=== PATIENT | male | born 1975 | race African-American/Black ===

== ENCOUNTER 2017-02-16 06:08 | Emergency (ER) | payer OTHER, MEDICAID ==
[~2017-02-16] VITALS: Ht 177.8 cm; Wt 134.0 kg
[~2017-02-16 06:08] MED LIST: ASPI-515 PO; FLUO60TA PO; LISI1TAB5 PO; PROP40TA PO; SIMV20TA3 PO
[2017-02-16 06:09] VITALS: BP 153/85
== END 2017-02-16 08:07 | disposition home or self-care (01) ==
LOC: ED 07:54
DX: K62.5 Hemorrhage of anus and rectum (principal); I10 Essential (primary) hypertension
CPT/HCPCS: 99283

== ENCOUNTER 2017-07-24 21:36 | Emergency (ER) | payer OTHER, MEDICAID ==
[~2017-07-24] VITALS: Ht 180.3 cm; Wt 133.2 kg
[2017-07-24 21:40] VITALS: BP 122/78
== END 2017-07-25 00:38 | disposition home or self-care (01) ==
LOC: ED 23:59
DX: B34.9 Viral infection, unspecified (principal); I10 Essential (primary) hypertension; E78.00 Pure hypercholesterolemia, unspecified
CPT/HCPCS: 71020; 93005; 99284

== ENCOUNTER 2018-03-20 11:19 | Emergency (ER) | payer OTHER, MEDICAID ==
[~2018-03-20] VITALS: Ht 180.3 cm; Wt 127.8 kg
[2018-03-20 11:20] VITALS: BP 137/84
== END 2018-03-20 12:53 | disposition home or self-care (01) ==
LOC: ED 12:15
DX: I10 Essential (primary) hypertension (principal); F32.9 Major depressive disorder, single episode, unspecified; E78.00 Pure hypercholesterolemia, unspecified; F41.9 Anxiety disorder, unspecified; Z79.82 Long term (current) use of aspirin
CPT/HCPCS: 99281

== ENCOUNTER 2018-12-24 01:19 | Emergency (ER) | payer MEDICAID, OTHER ==
[~2018-12-24] VITALS: Ht 180.3 cm; Wt 124.7 kg
[2018-12-24 01:21] VITALS: BP 149/93
[2018-12-24 02:11] LABS: BASOPHILS # (AUTO) 0.01 x10^3/uL (0-0.1); BASOPHILS % (AUTO) 0 % (0-1); EOSINOPHILS # (AUTO) 0.15 x10^3/uL (0-0.4); EOSINOPHILS % (AUTO) 2 % (1-7); LYMPHOCYTES # (AUTO) 1.88 x10^3/uL (1-3.4); LYMPHOCYTES % (AUTO) 26 % (22-44); MD NO; MEAN CORPUSCULAR HEMOGLOBIN 31.3 pg (27.5-34.5); MEAN CORPUSCULAR HGB CONC 34.3 g/dL (33.2-36.2); MEAN CORPUSCULAR VOLUME 91.3 fL (81-97); MEAN PLATELET VOLUME 11.5 fL (7.4-10.4); MONOCYTES # (AUTO) 0.46 x10^3/uL (0.2-0.8); MONOCYTES % (AUTO) 6 % (2-9); NEUTROPHILS # (AUTO) 4.74 x10^3/uL (1.8-6.8); NEUTROPHILS % (AUTO) 66 % (42-75); PLATELET COUNT 161 x10^3/uL (130-400); RED BLOOD COUNT 5.34 x10^6/uL (4.38-5.82); RED CELL DISTRIBUTION WIDTH 13.6 % (9.4-14.8)
--- NOTE | 2018-12-24 02:15 | NUR ---
pt in gown in [facility]. pt educated on er process and verbalizes understanding. call light is within reach.
[2018-12-24 02:21] LABS: ANION GAP 5 mmol/L (5-15); CALCIUM 9.2 mg/dL (8.5-10.1); CHLORIDE 106 mmol/L (98-107); CREATININE 1.15 mg/dL (0.7-1.3)
[2018-12-24 02:24] LABS: TROPONIN I < 0.015 ng/mL (0.000-0.045)
--- NOTE | 2018-12-24 02:56 | NUR ---
dr. zelaya at bs with pt.
--- NOTE | 2018-12-24 03:06 | NUR ---
pt d/c with d/c summary. all questions answered. pt denies any other needs pertaining to this visit. pt ambulated to registration desk with steady gait for d/c home.
== END 2018-12-24 03:08 ==
LOC: ED 03:02
DX: R06.00 Dyspnea, unspecified (principal); F32.9 Major depressive disorder, single episode, unspecified; E78.00 Pure hypercholesterolemia, unspecified; I10 Essential (primary) hypertension
CPT/HCPCS: 36415; 71046; 80048; 82040; 84484; 85025; 93005; 99284

== ENCOUNTER 2019-02-18 17:28 | Emergency (ER) | payer MEDICAID ==
[~2019-02-18] VITALS: Ht 180.3 cm; Wt 121.4 kg
--- NOTE | 2019-02-18 18:23 | NUR ---
Sent yellow slip to pharmacy requesting meds.
[2019-02-18] MEDS ORDERED: COLCHICINE 0.6 MG TABLET PO ONE (18:30)
[2019-02-18] MEDS ORDERED: INDOMETHACIN 50 MG CAPSULE PO ONE (18:30)
[2019-02-18 18:45] LABS: ANION GAP 9 mmol/L (5-15); CALCIUM 9.2 mg/dL (8.5-10.1); CHLORIDE 108 mmol/L (98-107); CREATININE 1.13 mg/dL (0.7-1.3)
[2019-02-18 18:46] LABS: BASOPHILS # (AUTO) 0.03 x10^3/uL (0-0.1); BASOPHILS % (AUTO) 0 % (0-1); EOSINOPHILS # (AUTO) 0.05 x10^3/uL (0-0.4); EOSINOPHILS % (AUTO) 1 % (1-7); LYMPHOCYTES % (AUTO) 25 % (22-44); MD NO; MEAN CORPUSCULAR HEMOGLOBIN 31.3 pg (27.5-34.5); MEAN CORPUSCULAR HGB CONC 34.6 g/dL (33.2-36.2); MEAN CORPUSCULAR VOLUME 90.7 fL (81-97); MEAN PLATELET VOLUME 11.4 fL (7.4-10.4); MONOCYTES # (AUTO) 0.48 x10^3/uL (0.2-0.8); MONOCYTES % (AUTO) 7 % (2-9); NEUTROPHILS # (AUTO) 4.34 x10^3/uL (1.8-6.8); NEUTROPHILS % (AUTO) 67 % (42-75); PLATELET COUNT 187 x10^3/uL (130-400); RED BLOOD COUNT 5.54 x10^6/uL (4.38-5.82); RED CELL DISTRIBUTION WIDTH 13.2 % (9.4-14.8)
[2019-02-18 18:51] VITALS: BP 121/81
--- NOTE | 2019-02-18 18:54 | NUR ---
MEDICATED PER [facility] REPORTS PAIN AT 5/10 VITALS UPDATED UPDATED PATIENT ON POC
== END 2019-02-18 19:14 | disposition home or self-care (01) ==
LOC: ED 17:37
DX: M10.071 Idiopathic gout, right ankle and foot (principal); M13.171 Monoarthritis, not elsewhere classified, right ankle and foot; M79.671 Pain in right foot; E78.00 Pure hypercholesterolemia, unspecified; I10 Essential (primary) hypertension
CPT/HCPCS: 36415; 80048; 84550; 85025; 93005; 99284

== ENCOUNTER 2019-08-15 18:08 | Emergency (ER) | payer MEDICAID ==
[~2019-08-15] VITALS: Ht 180.3 cm; Wt 117.0 kg
[~2019-08-15 18:08] MED LIST changes: +FLUO10CA7 PO; +HYDR-826 PO; +HYDR50TA13 PO; +LISI1TAB19 PO; -LISI1TAB5 PO; +PROP20TA PO; +PROP60CA PO
--- NOTE | 2019-08-15 18:18 | NUR ---
ARCHANA. REPORT RECEIVED FROM EMS. PT CHECKED BP AT HOME AND IT WAS HIGH(148/102), THEN PT HAS ANXEITY. PT'S AOX4. RESPS EVEN AND UNLABORED. PT'S BP IS 122/78 NOW/. BP/.SPO2 MONITORS IN PLACE. CALL LIGHT WITHIN REACH.
[2019-08-15] MEDS: LORazepam 1MG TABLET PO ONE ×2 (18:30→18:32)
[2019-08-15] MEDS ORDERED: LORazepam 1MG TABLET ONE (18:30)
--- NOTE | 2019-08-15 18:33 | NUR ---
PT DROPPED MED AND PT STATES" I DON'T NEED TO TAKE IT. I'LL TAKE IT AT HOME." EDMD NOTIFIED.
--- NOTE | 2019-08-15 18:57 | NUR ---
REPORT GIVEN TO CUAUHTEMOC VELÁSQUEZ.
[2019-08-15 19:09] VITALS: BP 111/64
== END 2019-08-15 19:47 | disposition home or self-care (01) ==
LOC: ED 18:50
DX: F41.1 Generalized anxiety disorder (principal); I10 Essential (primary) hypertension; E78.00 Pure hypercholesterolemia, unspecified; F32.9 Major depressive disorder, single episode, unspecified; Z72.9 Problem related to lifestyle, unspecified
CPT/HCPCS: 93005; 99284

== ENCOUNTER 2019-09-07 02:53 | Emergency (ER) | payer MEDICAID ==
[~2019-09-07] VITALS: Ht 177.8 cm; Wt 110.6 kg
[2019-09-07 03:10] VITALS: BP 118/76
== END 2019-09-07 03:20 | disposition home or self-care (01) ==
LOC: ED 03:00
DX: F41.1 Generalized anxiety disorder (principal); I10 Essential (primary) hypertension; F32.9 Major depressive disorder, single episode, unspecified; K21.9 Gastro-esophageal reflux disease without esophagitis; E78.00 Pure hypercholesterolemia, unspecified
CPT/HCPCS: 99281; 99284

== ENCOUNTER 2019-09-14 21:44 | Emergency (ER) | payer MEDICAID ==
[~2019-09-14] VITALS: Ht 180.3 cm; Wt 108.3 kg
[2019-09-14 21:46] VITALS: BP 136/91
[2019-09-14] MEDS ORDERED: LISI-170 PO (21:55)
[2019-09-14] MEDS ORDERED: IBUPROFEN 800 MG TABLET PO STA (22:02)
[2019-09-14] MEDS ORDERED: IBUPROFEN 200 MG TABLET ONE (22:02)
[2019-09-14] MEDS ORDERED: IBUPROFEN 200 MG TABLET PO STA (22:02)
--- NOTE | 2019-09-14 22:06 | NUR ---
PT MEDICATED PER MAR
--- NOTE | 2019-09-14 22:17 | NUR ---
DEHORNER AT PT'S BEDSIDE TO APPLY YOLY WRAP AND ICE PACK TO LEFT ANKLE
== END 2019-09-14 22:24 | disposition home or self-care (01) ==
LOC: ED 22:17
DX: S93.492A Sprain of other ligament of left ankle, initial encounter (principal); K21.9 Gastro-esophageal reflux disease without esophagitis; I10 Essential (primary) hypertension; X50.1XXA Overexertion from prolonged static or awkward postures, initial encounter; Y93.89 Activity, other specified; Y92.009 Unspecified place in unspecified non-institutional (private) residence as the place of occurrence of the external cause; Y99.8 Other external cause status
CPT/HCPCS: 99282